=== PATIENT | male | born 2000 | race Caucasian/White ===

== ENCOUNTER 2020-09-17 18:23 | Emergency (ER) | payer MEDICAID ==
[~2020-09-17] VITALS: Ht 175.3 cm; Wt 72.6 kg
[2020-09-17 18:33] VITALS: BP_SYST 123
[2020-09-17] MEDS: DIPH-TET-PERTUS Vaccine 0.5 ML VIAL (ADACEL) I.M. ONE (19:31)
== END 2020-09-17 19:37 | disposition home or self-care (01) ==
LOC: SED 18:23
DX: S61.211A Laceration without foreign body of left index finger without damage to nail, initial encounter (principal); W26.8XXA Contact with other sharp object(s), not elsewhere classified, initial encounter; Y93.89 Activity, other specified; Y92.89 Other specified places as the place of occurrence of the external cause; Y99.8 Other external cause status
CPT/HCPCS: 90715; 99283

== ENCOUNTER 2020-11-01 20:00 | Emergency (ER) | payer MEDICAID ==
[~2020-11-01] VITALS: Ht 185.4 cm; Wt 93.0 kg
[2020-11-01 20:05] VITALS: BP_SYST 147
--- NOTE | 2020-11-01 20:05 | NUR ---
PT TO REMAIN IN THE ER LOBBY UNTIL ER BED BECOMES AVAILABLE.
--- NOTE | 2020-11-01 20:30 | NUR ---
PT TO BED 4 FOR EVALUATION. REPORT GIVEN TO BO WING WHO WILL ASSUME CARE.
--- NOTE | 2020-11-01 20:45 | NUR ---
ER at bedside examining patient.
--- NOTE | 2020-11-01 20:46 | NUR ---
Patient transported to radiology via wheel chair , accompanied by radiation sterilisation technician.
[2020-11-01] MEDS ORDERED: KETOROLAC TROMETHAMINE 60 MG/2 ML VIAL IM ONE (21:30)
[2020-11-01] MEDS ORDERED: NAPR-1172 PO (21:53)
[2020-11-01 22:01] VITALS: BP_SYST 147
--- NOTE | 2020-11-01 22:01 | NUR ---
Patient given written and verbal discharge instructions and verbalizes understanding. ER MD discussed with patient the results and treatment provided. Patient in stable condition. ID arm band removed. Rx of Naproxen given. Patient educated on pain management and to follow up with PMD. Pain Scale 2/10. Opportunity for questions provided and answered. Medication side effect fact sheet provided.
== END 2020-11-01 22:01 | disposition home or self-care (01) ==
LOC: SED 20:00
DX: M54.42 Lumbago with sciatica, left side (principal)
CPT/HCPCS: 72110; 96372; 99283; J1885

== ENCOUNTER 2020-12-05 15:28 | Emergency (ER) | payer MEDICAID ==
[~2020-12-05] VITALS: Ht 185.4 cm; Wt 96.2 kg
[~2020-12-05 15:28] MED LIST: NAPR-1172 PO
[2020-12-05 15:51] VITALS: BP_SYST 117
[2020-12-05] MEDS ORDERED: AMOX-426 PO (16:28)
[2020-12-05 16:34] VITALS: BP_SYST 117
== END 2020-12-05 16:31 | disposition home or self-care (01) ==
LOC: SED 15:28
DX: S61.451A Open bite of right hand, initial encounter (principal); Z79.899 Other long term (current) drug therapy; W55.01XA Bitten by cat, initial encounter; Y93.89 Activity, other specified; Y92.89 Other specified places as the place of occurrence of the external cause; Y99.8 Other external cause status
CPT/HCPCS: 99283

== ENCOUNTER 2022-09-15 20:45 | Emergency (ER) | payer MEDICAID ==
[~2022-09-15] VITALS: Ht 185.4 cm; Wt 95.3 kg
[~2022-09-15 20:45] MED LIST changes: +AMOX-426 PO
[2022-09-15 21:10] VITALS: BP_SYST 108
[2022-09-15] MEDS ORDERED: NAPR-1172 PO (23:31)
[2022-09-15 23:42] VITALS: BP_SYST 122
== END 2022-09-15 23:42 | disposition home or self-care (01) ==
LOC: SED 20:45
DX: S63.501A Unspecified sprain of right wrist, initial encounter (principal); S60.221A Contusion of right hand, initial encounter; Z79.899 Other long term (current) drug therapy; W19.XXXA Unspecified fall, initial encounter; Y93.89 Activity, other specified; Y92.89 Other specified places as the place of occurrence of the external cause; Y99.8 Other external cause status
CPT/HCPCS: 99283